=== PATIENT | female | born 1980 | race Caucasian/White ===

== ENCOUNTER 2018-01-09 09:49 | Outpatient (CLI) | payer OTHER | END 2018-01-09 10:00 | disposition home or self-care (01) | LOC: SONOGRAMA 09:49 | DX: E04.2 Nontoxic multinodular goiter (principal) ==

== ENCOUNTER 2021-08-13 09:47 | Outpatient (CLI) | payer OTHER | END 2021-08-13 11:27 | disposition home or self-care (01) | LOC: NST 09:47 | PROVIDERS: ATTEND Obstetrics & Gynecology Maternal & Fetal Medicine | DX: Z34.83 Encounter for supervision of other normal pregnancy, third trimester (principal) ==

== ENCOUNTER 2021-10-01 12:48 | Inpatient (IN) | payer OTHER ==
[~2021-10-01] VITALS: Ht 167.6 cm; Wt 81.6 kg
[2021-10-22] MEDS ORDERED: PRENATAL TABLE1 EAC2 PO (10:42)
[2021-10-22] MEDS ORDERED: BISOPROLOL FUMAR5 MG PO (10:43)
== END 2021-10-24 15:35 | disposition home or self-care (01) | DRG 807 ==
LOC: OB/GYN 10-22 08:19 → LDR 10-22 08:19 → OB/GYN 10-22 19:22
PROVIDERS: ADMIT Obstetrics & Gynecology; ATTEND Obstetrics & Gynecology
PROC: 10E0XZZ Delivery of Products of Conception, External Approach (ICD-10-PCS; principal; 2021-10-22)
PROC: 0KQM0ZZ Repair Perineum Muscle, Open Approach (ICD-10-PCS; 2021-10-22)
PROC: 4A1HXCZ Monitoring of Products of Conception, Cardiac Rate, External Approach (ICD-10-PCS; 2021-10-22)
DX: O70.1 Second degree perineal laceration during delivery (principal); Z37.0 Single live birth; Z3A.39 39 weeks gestation of pregnancy; Z20.822 Contact with and (suspected) exposure to COVID-19